=== PATIENT | female | born 1985 | race Caucasian/White ===

== ENCOUNTER → 2020-04-16 | Outpatient (CLI) | payer MEDICARE ==
[~2020-04-16] MED LIST: BACTROBAN OINT22 GM PO; CIPROFLOXACIN500 MG PO; MOTRIN800 MG PO; ZOFRAN4 MG PO
== END | disposition home or self-care (01) ==
LOC: COVID19 12:10
PROVIDERS: ATTEND Family Medicine
DX: Z20.822 Contact with and (suspected) exposure to COVID-19 (principal)

== ENCOUNTER → 2020-11-15 | Day surgery (SDC) | payer MEDICARE ==
[~2020-11-15] VITALS: Ht 154.9 cm; Wt 68.0 kg
[~2020-11-15] MED LIST changes: +PERCOCET 5-3251 EACH PO; +SEPTDS PO
[2020-11-15 09:00] VITALS: BP 131/77
[2020-11-15 10:39] VITALS: BP 105/54
[2020-11-15 10:54] VITALS: BP 103/64
[2020-11-15 11:10] VITALS: BP 105/70
== END | disposition home or self-care (01) ==
LOC: SDC 11-09 10:15
PROVIDERS: ATTEND Surgery
DX: L72.0 Epidermal cyst (principal); L72.8 Other follicular cysts of the skin and subcutaneous tissue; D48.5 Neoplasm of uncertain behavior of skin; Z98.51 Tubal ligation status; Z79.899 Other long term (current) drug therapy; Z20.822 Contact with and (suspected) exposure to COVID-19

== ENCOUNTER 2020-11-23 16:14 | Emergency (ER) | payer MEDICARE ==
[~2020-11-23] VITALS: Ht 154.9 cm; Wt 72.6 kg
[2020-11-23 16:52] VITALS: BP 135/83
== END 2020-11-23 22:02 | disposition left against medical advice (07) ==
LOC: ED 16:14
DX: Z48.01 Encounter for change or removal of surgical wound dressing (principal); Z53.21 Procedure and treatment not carried out due to patient leaving prior to being seen by health care provider

== ENCOUNTER → 2020-11-26 | Outpatient (CLI) | payer MEDICARE | END | disposition home or self-care (01) | LOC: COVID19 17:34 | PROVIDERS: ATTEND Internal Medicine | DX: U07.1 COVID-19 (principal) ==

== ENCOUNTER 2021-03-26 21:47 | Emergency (ER) | payer MEDICARE ==
[~2021-03-26] VITALS: Ht 165.1 cm; Wt 86.2 kg
[2021-03-26 21:56] VITALS: BP 149/70
[2021-03-26 23:08] LABS: BASO % 0.3 % (0.0-1.0); EOS % 0.1 % (1.0-4.0); HEMATOCRIT 28.3 % (37.0-47.0); LYMPH # 0.9 10*3/uL (1.3-4.4); LYMPH % 9.4 % (27.0-41.0); MEAN CELL VOLUME 62.1 fl (81.0-99.0); MEAN CORPUSCULAR HGB 16.9 pg (27.0-31.0); MEAN CORPUSCULAR HGB CONC 27.2 g/dl (33.0-37.0); MEAN PLATELET VOLUME 10.2 fl (9.6-12.3); MONO # 0.7 10*3/uL (0.1-1.0); MONO % 7.5 % (3.0-9.0); NEUT # 7.4 10*3/uL (2.3-7.9); NEUT % 82.5 % (47.0-73.0); PLATELET COUNT AUTOMATED 299 10*3/uL (130-400); RED BLOOD COUNT 4.56 10*6/uL (4.10-5.10); RED CELL DISTRI WIDTH 19.8 % (0-14.5)
[2021-03-26 23:21] LABS: ALBUMIN 3.4 gm/dl (3.1-4.5); ALKALINE PHOSPHATASE 62 U/L (45-117); BUN 8 mg/dl (7-24); CHLORIDE 108 mmol/L (98-107); CREATININE 0.75 mg/dL (0.55-1.02); POTASSIUM 3.6 mmol/L (3.5-5.1); SGOT/AST 10 IU/L (3-35); SGPT/ALT 17 U/L (12-78); SODIUM 138 mmol/L (136-145); TOTAL PROTEIN 7.2 gm/dL (6.4-8.2)
[2021-03-27 02:44] LABS: BILIRUBIN Negative (Negative); BLOOD Trace-Intact (Negative); CLARITY Clear (Clear); COLOR Yellow (Yellow); GLUCOSE Negative (Negative); KETONE 1+ (Negative); LEUKO ESTERASE Trace (Negative); NITRITE Negative (Negative); PH 8.5 (4.5-8.0); SPECIFIC GRAVITY 1.015 (1.001-1.030)
[2021-03-27 02:54] LABS: BACTERIA TRACE
[2021-03-27] MEDS ORDERED: FEROSUL325 MG PO (04:26)
== END 2021-03-27 04:49 | disposition home or self-care (01) ==
LOC: ED 21:47
PROVIDERS: Emergency Medicine
DX: U07.1 COVID-19 (principal); D64.9 Anemia, unspecified; R51.9 Headache, unspecified; Z98.51 Tubal ligation status

== ENCOUNTER 2024-08-28 20:06 | Emergency (ER) | payer MEDICARE ==
[~2024-08-28] VITALS: Ht 142.2 cm; Wt 72.6 kg
[~2024-08-28 20:06] MED LIST changes: +FEROSUL325 MG PO
[2024-08-28 20:13] VITALS: BP 143/70
[2024-08-28] MEDS ORDERED: Ondansetron Hydrochloride 4 MG TAB SL ONE (21:00)
[2024-08-28 23:01] LABS: BILIRUBIN Negative (Negative); BLOOD 1+ (Negative); CLARITY Clear (Clear); COLOR Yellow (Yellow); GLUCOSE Negative (Negative); KETONE Negative (Negative); LEUKO ESTERASE Trace (Negative); NITRITE Negative (Negative); SPECIFIC GRAVITY 1.015 (1.001-1.030)
[2024-08-28 23:03] LABS: PH 8.5 (4.5-8.0)
[2024-08-28 23:13] LABS: RBC 21-30 rbc/hpf (0-2)
[2024-08-28] MEDS ORDERED: Ketorolac Tromethamine 60 MG/2 ML VIAL IM ONE (23:20)
[2024-08-28] MEDS ORDERED: FLOMAX0.4 MG PO (23:26)
[2024-08-28] MEDS ORDERED: Ondansetron4 MG PO (23:26)
[2024-08-28] MEDS ORDERED: HYDROCODONE-AC1 EAC1 PO (23:26)
[2024-08-28] MEDS ORDERED: Tamsulosin Hydrochloride 0.4 MG CAP PO ONE (23:30)
== END 2024-08-28 23:54 | disposition home or self-care (01) ==
LOC: ED 20:06
PROVIDERS: Internal Medicine
DX: N13.2 Hydronephrosis with renal and ureteral calculous obstruction (principal); N13.4 Hydroureter; R11.2 Nausea with vomiting, unspecified; Z79.899 Other long term (current) drug therapy